=== PATIENT | female | born 1955 | race Caucasian/White ===

== ENCOUNTER 2021-01-09 09:55 | Outpatient (CLI) | payer MEDICARE | END 2021-01-09 23:59 | disposition home or self-care (01) | LOC: CFH 09:55 | PROVIDERS: ATTEND Family Medicine | DX: Z12.31 Encounter for screening mammogram for malignant neoplasm of breast (principal); Z12.39 Encounter for other screening for malignant neoplasm of breast; M81.0 Age-related osteoporosis without current pathological fracture | CPT/HCPCS: 76641; 77063; 77067; 77080 ==

== ENCOUNTER 2021-07-12 08:45 | Outpatient (CLI) | payer MEDICARE | END 2021-07-12 23:59 | disposition home or self-care (01) | LOC: RAD 08:45 | PROVIDERS: ATTEND Family Medicine | DX: R94.5 Abnormal results of liver function studies (principal) | CPT/HCPCS: 76705 ==